=== PATIENT | female | born 1980 | race Caucasian/White ===

== ENCOUNTER 2018-10-09 04:39 | Observation (INO) | payer MEDICARE, OTHER ==
[2018-10-09] MEDS ORDERED: EPINEPHRINE 1 MG/ML AMPUL IM ONE (05:02)
[2018-10-09] MEDS ORDERED: METHYLPREDNISOLONE PF 125MG/VIAL IVP ONE (05:07)
[2018-10-09] MEDS ORDERED: DIPHENHYDRAMINE HCL 50 MG/ML VIAL IVP ONE (05:10)
[2018-10-09] MEDS ORDERED: ALBUTEROL SULFATE (0.083%) 2.5 MG/3 ML NEB INH ONE (05:14)
[2018-10-09] MEDS ORDERED: GLUCAGON 1 MG/VIAL IV ONE (06:17)
[2018-10-09] MEDS ORDERED: RANITIDINE HCL 50 MG in 0.9 % SODIUM CHLORIDE 100ML 100 ML IVPB ONE (06:18)
--- NOTE | 2018-10-09 06:26 | Emergency Department Record ---
History of Present Illness - General Chief complaint: Allergic Reaction Stated complaint: ALLERGIC REACTION Time Seen by Provider: 10/09/18 04:41 Source: Patient Mode of Arrival: Ambulatory Limitations: No limitations - History of Present Illness Initial Comments: pt has been having problems with hives that have been getting progressivelyworse over the last few months. last night she started breaking out once again and used epi pens twice. she contd to get worse so she went to [facility] where they gave her more epi twice and benadryl and solumedrol. they wanted to admit her for anaphylaxis and she signed out ama and came here. she continues to have hives. 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 Complaint: Hives, Facial swelling Onset/Timin -: Hour(s) Exposure: Unknown Symptoms: Rash, Difficulty breathing, Difficulty swallowing Severity: Mild Treatment Prior to Arrival: Benadryl, Epinephrine, Steroids Previous Allergy History: Anaphylaxis, Other - Related Data Home Medications Medication Instructions Recorded Confirmed Last Taken Buprenorphine HCl/Naloxone HCl 4 mg PO TID 10/09/18 10/09/18 Unknown [Suboxone 4 mg-1 mg Sl Film] Epinephrine 1 syringe IM ASDIR 10/09/18 10/09/18 10/09/18 Allergies Allergy/AdvReac Type Severity Reaction Status Date / Time codeine Allergy Intermediate NAUSEA Verified 10/09/18 04:52 sertraline HCl [From Zoloft] AdvReac Intermediate PT UNSURE Verified 10/09/18 04 :52 OF REACTION Travel Screening - Travel/Exposure Within Last 30 Days Have you traveled within the last 30 days?: No - Travel/Exposure Within Last Year Have you traveled outside the [place] in the last year?: No - Additonal Travel Details Have you been exposed to anyone with a communicable illness?: No - Travel Symptoms Symptom Screening: None Review of Systems Reviewed: No additional complaints except as noted below Constitutional: Reports: As per HPI. Denies: Chills, Fever, Malaise, Night sweats, Weakness, Weight change Eyes: Reports: As per HPI. Denies: Eye discharge, Eye pain, Photophobia, Vision change ENT: Reports: As per HPI. Denies: Congestion, Dental pain, Ear pain, Epistaxis , Hearing loss, Throat pain Respiratory: Reports: As per HPI. Denies: Cough, Dyspnea, Hemoptysis, Stridor, Wheezes Cardiovascular: Reports: As per HPI. Denies: Arrhythmia, Chest pain, Dyspnea on exertion, Edema, Murmurs, Orthopnea, Palpitations, Paroxysmal nocturnal dyspnea, Rheumatic Fever, Syncope Endocrine: Reports: As per HPI. Denies: Fatigue, Heat or cold intolerance, Polydipsia, Polyuria Gastrointestinal: Reports: As per HPI. Denies: Abdominal pain, Constipation, Diarrhea, Hematemesis, Hematochezia, Melena, Nausea, Vomiting Genitourinary: Reports: As per HPI. Denies: Abnormal menses, Discharge, Dyspareunia, Dysuria, Frequency, Hematuria, Incontinence, Retention, Urgency Musculoskeletal: Reports: As per HPI. Denies: Arthralgia, Back pain, Gout, Joint swelling, Myalgia, Neck pain Skin: Reports: As per HPI. Denies: Bruising, Change in color, Change in hair/ nails, Lesions, Pruritus, Rash Neurological: Reports: As per HPI. Denies: Abnormal gait, Confusion, Headache, Numbness, Paresthesias, Seizure, Tingling, Tremors, Vertigo, Weakness Psychiatric: Reports: As per HPI. Denies: Anxiety, Auditory hallucinations, Depression, Homicidal thoughts, Suicidal thoughts, Visual hallucinations Hematological/Lymphatic: Reports: As per HPI. Denies: Anemia, Blood Clots, Easy bleeding, Easy bruising, Swollen glands Past Medical History - SOCIAL HISTORY Smoking Status: Current every day smoker Alcohol Use: Rare Drug Use: None - RESPIRATORY Hx Respiratory Disorders: No - CARDIOVASCULAR Hx Cardio Disorders: No - NEURO Hx Neuro Disorders: Yes Comment:: fibromylgia - GI Hx GI Disorders: No - Hx Genitourinary Disorders: No - ENDOCRINE Hx Endocrine Disorders: No - MUSCULOSKELETAL Hx Musculoskeletal Disorders: Yes Hx Fibromyalgia: Yes - PSYCH Hx Psych Problems: No - HEMATOLOGY/ONCOLOGY Hx Hematology/Oncology Disorders: No Family Medical History Any Significant Family History?: No Physical Exam - General General Appearance: Alert, Oriented x3, Cooperative, Mild distress - Head Head exam: Normal inspection - Eye Eye exam: Normal appearance, PERRL, EOMI Pupils: Normal accommodation - ENT ENT exam: Normal exam, Mucous membranes moist, Normal external ear exam, Normal orophraynx Ear exam: Normal external inspection. negative: External canal tenderness Nasal Exam: Normal inspection. negative: Discharge, Sinus tenderness Mouth exam: Normal external inspection, Tongue normal Teeth exam: Normal inspection. negative: Dental caries Throat exam: Normal inspection. negative: Tonsillar erythema, Tonsillar exudate - Neck Neck exam: Normal inspection, Full ROM. negative: Tenderness - Respiratory Respiratory exam: Normal lung sounds bilaterally. negative: Respiratory distress - Cardiovascular Cardiovascular Exam: Regular rate, Normal rhythm, Normal heart sounds - GI/Abdominal GI/Abdominal exam: Soft, Normal bowel sounds. negative: Tenderness - Rectal Rectal exam: Deferred - exam: Deferred - Extremities Extremities exam: Normal inspection, Full ROM, Normal capillary refill. negative: Tenderness - Back Back exam: Reports: Normal inspection, Full ROM. Denies: Muscle spasm, Rash noted, Tenderness - Neurological Neurological exam: Alert, CN II-XII intact, Normal gait, Oriented X3 - Psychiatric Psychiatric exam: Normal affect, Normal mood - Skin Skin exam: Dry, Intact, Normal color, Rash, Urticaria, Warm Distribution of rash: Chest, Face, RUE, LUE Description of rash: Urticarial Course Vital Signs 10/09/18 10/09/18 10/09/18 04:45 05:16 06:18 Temperature 98.9 F Pulse Rate 95 H 86 Pulse Rate [ 102 H Pulse Ox Probe] Respiratory 16 20 22 Rate Blood Pressure 131/80 Blood Pressure 128/71 [Left Arm] Pulse Ox 98 97 96 - Reevaluation(s) Reevaluation #1: 10/09/18 06:42 pt is doing better but still has hives. airway is clear, erythema has decreased Disposition Disposition: Admit Clinical Impression: Anaphylaxis Qualifiers: Encounter type: initial encounter Qualified Code(s): T78.2XXA - Anaphylactic shock, unspecified, initial encounter Disposition: Still a Patient at [facility] Decision to Admit: Admit from ER Decision to Admit Date: 10/09/18 Decision to Admit Time: 06:45 Forms: Patient Portal Access Quality - Quality Measures Quality Measures: N/A - Blood Pressure Screening Does Patient Have Any of the Following: No Blood Pressure Classification: Pre-Hypertensive BP Reading Systolic Measurement: 131 Diastolic Measurement: 80 Screening for High Blood Pressure: < Pre-Hypertensive BP, F/U Documented > [ [id number]] Pre-Hypertensive Follow-up Interventions: Follow-up with rescreen every year.
[2018-10-09] MEDS ORDERED: ALBUTEROL SULFATE (0.083%) 2.5 MG/3 ML NEB INH PRN (07:34)
[2018-10-09] MEDS ORDERED: ACETAMINOPHEN 500 MG TABLET PO PRN (07:34)
[2018-10-09] MEDS ORDERED: DIPHENHYDRAMINE HCL 50 MG/ML VIAL IVP PRN (07:34)
--- NOTE | 2018-10-09 07:37 | History & Physical ---
History of Present Illness - Date of Service Date of Service for History & Physical: 10/11/18 - History of Present Illness Admitting Diagnosis: rebound anaphylaxis History of Present Illness: Mrs. Sam is a 37 y/o female who presents with gradual onset hives. The patient has had similar episodes in the past due to allergies to Bees. She says about 3 months ago she was stung by several Bees and the stinger was left in her lower back. She states that she began having intermittent rash on her arms and face. She tried using Benadryl but did not get any relief and she also tried using her Epi pens but still she had symptoms. She says that she has always had Bee allergies but this reaction has been the worst. The patient went to [facility] yesterday and she was started on IV steroids but left against medical advise and presented to [facility] thereafter. The patient has not had any allergy or immunological testing. While in ED the patient was given Solumedrol 125mg, Ranitidine and Benadryl. She remained hemodynamically stable and had no oropharyngeal edema on examination. Vitals in ED: Travel Screening - Travel/Exposure Within Last 30 Days Have you traveled within the last 30 days?: No - Travel/Exposure Within Last Year Have you traveled outside the [place] in the last year?: No - Additonal Travel Details Have you been exposed to anyone with a communicable illness?: No - Travel Symptoms Symptom Screening: None Review of Systems Constitutional: Reports: As per HPI. Denies: Chills, Fever, Malaise, Night sweats, Weakness, Weight change Eyes: Reports: As per HPI. Denies: Eye discharge, Eye pain, Photophobia, Vision change ENT: Reports: As per HPI. Denies: Congestion, Dental pain, Ear pain, Epistaxis , Hearing loss, Throat pain Respiratory: Reports: As per HPI. Denies: Cough, Dyspnea, Hemoptysis, Stridor, Wheezes Cardiovascular: Reports: As per HPI. Denies: Arrhythmia, Chest pain, Dyspnea on exertion, Edema, Murmurs, Orthopnea, Palpitations, Paroxysmal nocturnal dyspnea, Rheumatic Fever, Syncope Endocrine: Reports: As per HPI. Denies: Fatigue, Heat or cold intolerance, Polydipsia, Polyuria Gastrointestinal: Reports: As per HPI. Denies: Abdominal pain, Constipation, Diarrhea, Hematemesis, Hematochezia, Melena, Nausea, Vomiting Genitourinary: Reports: As per HPI. Denies: Abnormal menses, Discharge, Dyspareunia, Dysuria, Frequency, Hematuria, Incontinence, Retention, Urgency Musculoskeletal: Reports: As per HPI. Denies: Arthralgia, Back pain, Gout, Joint swelling, Myalgia, Neck pain Skin: Reports: As per HPI. Denies: Bruising, Change in color, Change in hair/ nails, Lesions, Pruritus, Rash Neurological: Reports: As per HPI. Denies: Abnormal gait, Confusion, Headache, Numbness, Paresthesias, Seizure, Tingling, Tremors, Vertigo, Weakness Psychiatric: Reports: As per HPI. Denies: Anxiety, Auditory hallucinations, Depression, Homicidal thoughts, Suicidal thoughts, Visual hallucinations Hematological/Lymphatic: Reports: As per HPI. Denies: Anemia, Blood Clots, Easy bleeding, Easy bruising, Swollen glands Past Medical History - SOCIAL HISTORY Smoking Status: Current every day smoker Alcohol Use: Rare Drug Use: None - RESPIRATORY Hx Respiratory Disorders: No - CARDIOVASCULAR Hx Cardio Disorders: No - NEURO Hx Neuro Disorders: Yes Comment:: fibromylgia - GI Hx GI Disorders: No - Hx Genitourinary Disorders: No - ENDOCRINE Hx Endocrine Disorders: No - MUSCULOSKELETAL Hx Musculoskeletal Disorders: Yes Hx Fibromyalgia: Yes - PSYCH Hx Psych Problems: No - HEMATOLOGY/ONCOLOGY Hx Hematology/Oncology Disorders: No Family Medical History Any Significant Family History?: No H&P Meds/Allergies - Allergies Allergies: Allergies Allergy/AdvReac Type Severity Reaction Status Date / Time codeine Allergy Intermediate NAUSEA Verified 10/09/18 04:52 sertraline HCl [From Zoloft] AdvReac Intermediate PT UNSURE Verified 10/09/18 04 :52 OF REACTION - Home Medications Home Medications Medication Instructions Recorded Confirmed Last Taken Buprenorphine HCl/Naloxone HCl 4 mg PO TID 10/09/18 10/09/18 Unknown [Suboxone 4 mg-1 mg Sl Film] Epinephrine 1 syringe IM ASDIR 10/09/18 10/09/18 10/09/18 Physical Exam - Vital Signs Vital Signs: Vital Signs - Last 24 Hrs Temp Pulse Pulse Resp BP BP Pulse Ox 10/09/18 07:09 90 18 116/67 96 10/09/18 06:18 102 H 22 128/71 96 10/09/18 05:16 86 20 97 10/09/18 04:45 98.9 F 95 H 16 131/80 98 - General General Appearance: Alert, Oriented x3, Cooperative, Mild distress Limitations: No limitations - Head Head exam: Normal inspection - Eye Eye exam: Normal appearance, PERRL, EOMI Pupils: Normal accommodation - ENT ENT exam: Normal exam, Mucous membranes moist, Normal external ear exam, Normal orophraynx Ear exam: Normal external inspection. negative: External canal tenderness Nasal Exam: Normal inspection. negative: Discharge, Sinus tenderness Mouth exam: Normal external inspection, Tongue normal Teeth exam: Normal inspection. negative: Dental caries Throat exam: Normal inspection. negative: Tonsillar erythema, Tonsillar exudate - Neck Neck exam: Normal inspection, Full ROM. negative: Tenderness - Respiratory Respiratory exam: Normal lung sounds bilaterally. negative: Respiratory distress - Cardiovascular Cardiovascular Exam: Regular rate, Normal rhythm, Normal heart sounds - GI/Abdominal GI/Abdominal exam: Soft, Normal bowel sounds. negative: Tenderness - Rectal Rectal exam: Deferred - exam: Deferred - Extremities Extremities exam: Normal inspection, Full ROM, Normal capillary refill. negative: Tenderness - Back Back exam: Reports: Normal inspection, Full ROM. Denies: Muscle spasm, Rash noted, Tenderness - Neurological Neurological exam: Alert, CN II-XII intact, Normal gait, Oriented X3 - Psychiatric Psychiatric exam: Normal affect, Normal mood - Skin Skin exam: Dry, Intact, Normal color, Rash, Urticaria, Warm Distribution of rash: Chest, Face, RUE, LUE Description of rash: Urticarial VTE H&P Assessment - Risk for VTE Risk for VTE: Yes Risk Level: Low Risk Assessment Date: 10/09/18 Risk Assessment Time: 09:46 VTE Orders Placed or Will Be Placed: Yes Plan - Detailed Diagnosis and Plan (1) Hives Status: Acute Base Code: L50.9 - URTICARIA, UNSPECIFIED Comment: 10/09/18: - severe skin irriation of the arms and neck with erythema, wheals/flares. - on Ranitidine and Diphenyhydramine (2) Anaphylaxis Status: Inactive Qualifiers: Encounter type: initial encounter Qualified Code(s): T78.2XXA - Anaphylactic shock, unspecified, initial encounter Base Code: T78.2XXA - ANAPHYLACTIC SHOCK, UNSPECIFIED, INITIAL ENCOUNTER Comment: 10/09/18: - reaction 2/2 Bee stings. Severe skin rash, facial swelling. - resolving with Epinephrine, Solumderol and Benadryl. (3) Opiate dependence Status: Acute Base Code: F11.20 - OPIOID DEPENDENCE, UNCOMPLICATED Comment: 10/09/18: - on Suboxone 4mg TID - follow up with pain clinic on discharge.
[2018-10-09] MEDS ORDERED: METHYLPREDNISOLONE PF 125MG/VIAL IVP SCH ×2 (08:00→13:00)
[2018-10-09] MEDS: NALOXONE HCL PO SCH ×2 (10:37→15:58)
[2018-10-09] MEDS: BUPRENORPHINE HCL PO SCH ×2 (10:37→15:58)
--- NOTE | 2018-10-09 22:05 | Discharge Summary ---
Providers Discharge Summary Date: 10/09/18 Date of admission: 10/09/18 07:07 Attending physician: TEA NORMAN Physical Exam - Vital Signs Vital Signs: Vital Signs - Last 24 Hrs Temp Pulse Pulse Resp BP BP Pulse Ox 10/09/18 18:00 97.5 F L 72 18 113/68 98 10/09/18 07:25 78 18 113/62 97 10/09/18 07:09 90 18 116/67 96 10/09/18 06:18 102 H 22 128/71 96 10/09/18 05:16 86 20 97 10/09/18 04:45 98.9 F 95 H 16 131/80 98 - General General Appearance: Alert, Oriented x3, Cooperative, Mild distress Limitations: No limitations - Head Head exam: Normal inspection - Eye Eye exam: Normal appearance, PERRL, EOMI Pupils: Normal accommodation - ENT ENT exam: Normal exam, Mucous membranes moist, Normal external ear exam, Normal orophraynx Ear exam: Normal external inspection. negative: External canal tenderness Nasal Exam: Normal inspection. negative: Discharge, Sinus tenderness Mouth exam: Normal external inspection, Tongue normal Teeth exam: Normal inspection. negative: Dental caries Throat exam: Normal inspection. negative: Tonsillar erythema, Tonsillar exudate - Neck Neck exam: Normal inspection, Full ROM. negative: Tenderness - Respiratory Respiratory exam: Normal lung sounds bilaterally. negative: Respiratory distress - Cardiovascular Cardiovascular Exam: Regular rate, Normal rhythm, Normal heart sounds Peripheral Pulses: 3+: Radial (R), Radial (L), Dorsalis Pedis (R), Dorsalis Pedis (L) - GI/Abdominal GI/Abdominal exam: Soft, Normal bowel sounds. negative: Tenderness - Rectal Rectal exam: Deferred - exam: Deferred - Extremities Extremities exam: Normal inspection, Full ROM, Normal capillary refill. negative: Tenderness - Back Back exam: Reports: Normal inspection, Full ROM. Denies: Muscle spasm, Rash noted, Tenderness - Neurological Neurological exam: Alert, CN II-XII intact, Normal gait, Oriented X3 - Psychiatric Psychiatric exam: Normal affect, Normal mood - Skin Skin exam: Dry, Intact, Normal color, Rash, Urticaria, Warm Distribution of rash: Chest, Face, RUE, LUE Description of rash: Urticarial Hospitalization - Hospitalization Admission Diagnosis: rebound anaphylaxis - Problem List/Discharge Diagnosis (1) Hives Status: Acute Base Code: L50.9 - URTICARIA, UNSPECIFIED Comment: 10/09/18: - severe skin irriation of the arms and neck with erythema, wheals/flares. - on Ranitidine and Diphenyhydramine (2) Anaphylaxis Status: Inactive Discharge Diagnosis: Encounter type: initial encounter Qualified Code(s): T78.2XXA - Anaphylactic shock, unspecified, initial encounter Base Code: T78.2XXA - ANAPHYLACTIC SHOCK, UNSPECIFIED, INITIAL ENCOUNTER Comment: 10/09/18: - reaction 2/2 Bee stings. Severe skin rash, facial swelling. - resolving with Epinephrine, Solumderol and Benadryl. - Hospitalization Course Disposition: Home, Self-Care Hospital Course: Mrs. Sam is a 37 y/o female who presents with gradual onset hives. The patient has had similar episodes in the past due to allergies to Bees. She says about 3 months ago she was stung by several Bees and the stinger was left in her lower back. She states that she began having intermittent rash on her arms and face. She tried using Benadryl but did not get any relief and she also tried using her Epi pens but still she had symptoms. She says that she has always had Bee allergies but this reaction has been the worst. The patient went to [facility] yesterday and she was started on IV steroids but left against medical advise and presented to [facility] thereafter. The patient has not had any allergy or immunological testing. While in ED the patient was given Solumedrol 125mg, Ranitidine and Benadryl. She remained hemodynamically stable and had no oropharyngeal edema on examination. On evaluation later in the afternoon the patient reported feeling much better and requested to be sent home. She remained hemodynamically stable throughout the day. Condition at Discharge: (2) Stable Discharge Medications - Discharge Medications Home Medications: Ambulatory Orders Buprenorphine HCl/Naloxone HCl [Suboxone 4 mg-1 mg Sl Film] 4 mg PO TID [Last Taken Unknown] Epinephrine 1 syringe IM ASDIR 10/09/18 [Last Taken 10/09/18] Discharge Plan - Discharge Instructions Instructions: Anaphylaxis (GEN) Additional Instructions: Follow up in the clinic next week. Use Epi pen as directed. Diet and activity as tolerated. Return to the ED if developing hives, difficulty breathing, or worse in any way Resume home meds Quality Measures - Quality Measures Quality Measures: Documentation of Current Medications in Medical Record, Screening for High Blood Pressure and F/U Documented - Current Medications Quality Measure: Measure #130: Documentation of Current Medications Documentation of Current Medications: <Current Medications Documented/Reviewed> [G8427] - Blood Pressure Screening Quality Measure: Screening for High Blood Pressure and Follow-Up Documented Does Patient Have Any of the Following: No Blood Pressure Classification: Normal BP Reading Systolic Measurement: 116 Diastolic Measurement: 67 Screening for High Blood Pressure: < Normal BP, F/U Not Required > [G8783] - Elder Abuse Suspicion Index EASI Reference Information: Blue TROTTER, Cece C, Mendy D, Gabriele Herman.Development and validation of a tool to assist physicians identification of elder abuse: The Elder Abuse Suspicion Index (EASI ). Journal of Elder Abuse and Neglect, 2008; 20 (3): 276-300.
== END 2018-10-09 18:09 | disposition home or self-care (01) ==
LOC: ER 04:39 → MEDSURG 07:07
PROVIDERS: ADMIT Internal Medicine; ATTEND Internal Medicine
DX: T78.2XXA Anaphylactic shock, unspecified, initial encounter (principal); R06.00 Dyspnea, unspecified; M79.7 Fibromyalgia; F11.20 Opioid dependence, uncomplicated; F17.210 Nicotine dependence, cigarettes, uncomplicated
CPT/HCPCS: 99285 ×2; 96374; 96372; 96375; 94640; G0378; J1610; 99236; J0171; J1200; J2780; J2930; J7613